=== PATIENT | male | born 1995 | race Caucasian/White ===

== ENCOUNTER 2021-04-28 06:49 | Emergency (ER) | payer OTHER ==
[~2021-04-28] VITALS: Ht 170.2 cm; Wt 92.2 kg
[2021-04-28] MEDS ORDERED: ACETAMINOPHEN TAB 650MG DOSE (2X325MG) PO ONE (07:15)
[2021-04-28 08:17] LABS: RSV AMPLIFICATION NEGATIVE (NEGATIVE)
[2021-04-28 11:25] VITALS: BP 156/66
== END 2021-04-28 11:30 | disposition home or self-care (01) ==
LOC: M ED 06:49
DX: R68.83 Chills (without fever) (principal); R52 Pain, unspecified; U07.1 COVID-19; Z77.098 Contact with and (suspected) exposure to other hazardous, chiefly nonmedicinal, chemicals

== ENCOUNTER 2021-06-27 10:38 | Day surgery (SDC) | payer OTHER ==
[~2021-06-27] VITALS: Ht 167.6 cm; Wt 90.3 kg
[~2021-06-27 10:38] MED LIST: LIDOCAINE 1% MDV 20ML VIAL SQ PRN; LR 1,000 ML IV ONE; ceFAZolin SOD 2 GM in IV 1 EA IV ONE
[2021-06-27] MEDS ORDERED: BACITRACIN OINTMENT 30GM TUBE As Ordered ONE (12:13)
[2021-06-27] MEDS ORDERED: LIDOCAINE 2% 100MG/5ML SDV (FOR ANES.) As Ordered ONE (12:18)
[2021-06-27] MEDS ORDERED: fentaNYL 250 MCG/5 ML INJECTION As Ordered ONE (12:19)
[2021-06-27] MEDS ORDERED: propofoL 200 MG/20 ML VIAL As Ordered ONE ×2 (12:19→12:44)
[2021-06-27] MEDS ORDERED: dexameTHASONE 4 MG/ML 1ML VIAL (J1100 PER 1MG) As Ordered ONE (12:19)
[2021-06-27] MEDS ORDERED: ONDANSETRON 4MG/2ML VIAL As Ordered ONE (12:19)
[2021-06-27] MEDS ORDERED: MIDAZOLAM INJ 2MG/2ML VIAL (J2250 PER 1MG) As Ordered ONE (12:19)
[2021-06-27] MEDS ORDERED: METOCLOPRAMIDE INJ 10MG/2ML VIAL (J2765 PER 1) As Ordered ONE (12:19)
[2021-06-27] MEDS ORDERED: ACETAMINOPHEN 1000MG 100ML IV BTL (OFIRMEV) (J0131 PER 10MG) As Ordered ONE (12:43)
[2021-06-27] MEDS ORDERED: HYDROmorphone HCL 2MG/ML 1ML VIAL As Ordered ONE (12:58)
[2021-06-27] MEDS ORDERED: OXYC1TAB23 PO (14:00)
[2021-06-27] MEDS ORDERED: fentaNYL 100 MCG/2 ML INJECTION IV PRN (14:30)
[2021-06-27] MEDS ORDERED: PERCOCET 5MG/325MG TAB PO PRN ×2 (14:30)
[2021-06-27] MEDS ORDERED: LR 1,000 ML IV SCH (14:30)
[2021-06-27] MEDS ORDERED: ONDANSETRON 4MG/2ML VIAL IV PRN (14:30)
[2021-06-27] MEDS ORDERED: METOCLOPRAMIDE INJ 10MG/2ML VIAL (J2765 PER 1) IV PRN (14:30)
[2021-06-27 15:35] VITALS: BP 129/77
== END 2021-06-27 15:54 | disposition home or self-care (01) ==
LOC: M SDC 10:38
PROVIDERS: ATTEND Urology
DX: N47.1 Phimosis (principal); F17.210 Nicotine dependence, cigarettes, uncomplicated
CPT/HCPCS: 54161; 88304; J0131; J0690; J1100; J1170; J2250; J2405; J2765; J3010